=== PATIENT | female | born 1965 | race Caucasian/White ===

== ENCOUNTER 2017-09-05 11:55 | Emergency (ER) | payer SELFPAY ==
[~2017-09-05] VITALS: Ht 157.5 cm; Wt 86.4 kg
[~2017-09-05 11:55] MED LIST: AMOXICILLIN/PO500 MG PO; FLEXERIL PO; FLEXERIL5 M1 PO; FLEXERIL5 MG PO; LORCET HD 10-321 TAB PO; LORTAB 10-325 M1 TAB PO; LORTAB 5/3255 MG PO; LORTAB5 PO; NAPROSYN375 MG PO; NAPROSYN500 MG PO; NORCO1 TA1 PO; PRILOSEC20 MG/CAP PO; PROTONIX20 M1 PO; TRAMADOL HCL50 MG PO
[2017-09-05] MEDS ORDERED: VALIUM5 MG PO (12:14)
[2017-09-05] MEDS ORDERED: HYDROCODONE/ACE1 TAB PO (12:15)
[2017-09-05] MEDS ORDERED: HYDROCHLOROT25 MG PO (12:16)
[2017-09-05] MEDS ORDERED: ALBUTEROL SUL0.083 % IN (13:14)
[2017-09-05] MEDS ORDERED: ZITHROMAX250 MG PO (13:14)
[2017-09-05] MEDS ORDERED: VENTOLIN HFA IN (13:14)
[2017-09-05] MEDS ORDERED: TESSALON PER100 MG PO (13:14)
[2017-09-05] MEDS ORDERED: PREDNISONE50 MG PO (13:14)
[2017-09-05 13:17] VITALS: BP 167/93
== END 2017-09-05 13:24 | disposition home or self-care (01) | DRG 203 ==
LOC: ED 11:55
DX: J20.9 Acute bronchitis, unspecified (principal); I10 Essential (primary) hypertension; M54.9 Dorsalgia, unspecified; G89.29 Other chronic pain; F17.210 Nicotine dependence, cigarettes, uncomplicated